=== PATIENT | male | born 1945 | race Caucasian/White ===

== ENCOUNTER 2025-04-27 14:22 | Outpatient (AMB) | payer MEDICARE, SELFPAY ==
--- NOTE | 2025-04-27 14:50 | A.OFFVIS_ITS ---
Intake Visit Reasons: debility Accompanied by: spouse and daughter Allergies No Known Allergies Allergy (Verified 04/27/25 14:50) Medication List - Last Reconciled 04/27/25 by Mili Clemons CNP acyclovir 400 mg PO BID aspirin 325 mg PO DAILY atorvastatin 20 mg PO DAILY duloxetine 60 mg PO DAILY hydrochlorothiazide 25 mg PO DAILY isosorbide mononitrate ER 60 mg PO DAILY lisinopril 20 mg PO DAILY lorazepam 1 mg PO QID PRN metoprolol tartrate 100 mg PO BID nitroglycerin 0.4 mg sublingual omeprazole 20 mg PO DAILY PRN HPI Comments Details: 80-year-old man with CAD s/p CABG, hypertension, hyperlipidemia, peripheral vascular disease, chronic viral eye infection (since causing left eye ptosis that has been unchanged, managed with acylovir), history of cervical discectomy and fusion, and chronic back pain s/p lumbar laminectomy in 2019 who presents with difficulty and inability to walk due to leg weakness and pain. Over the past three months, he has experienced a progressive weakening of his legs, particularly from the knees downwards, rendering him unable to bear weight. Symptoms initially improved during in-patient rehabilitation stay in 02/2025, but his condition worsened after returning home. He is using a wheelchair and is able to transfer by sliding himself. He requires 2 assistance to stand with difficulty. He gets severe pain in lower legs when standing, making standing and walking very difficult. He occasionally has some coldness in the legs, and numbness and tingling, particularly at night. [facility], LATER [facility] Medical History (Updated 04/27/25 @ 16:38 by Mili Clemons CNP) Hypertension CAD (coronary artery disease) Surgical History (Updated 04/27/25 @ 16:38 by Mili Clemons CNP) S/P cervical discectomy S/P lumbar laminectomy S/P CABG (coronary artery bypass graft) Social History (Updated 04/27/25 @ 16:38 by Mili Clemons CNP) Alcohol intake: never Patient Tobacco Use Status: Never used Tobacco Review of Systems Const Denies chills, Denies daytime sleepiness, Reports difficulty sleeping, Reports fatigue, Denies fever(s), Denies frequent falls, Reports headache(s), Denies increased appetite, Denies poor appetite, Denies snoring, Reports weakness, Denies weight gain and Reports weight loss Eyes Denies blurry vision, Denies diplopia and Denies loss of vision ENT Denies vertigo, Denies dizziness, Denies dry mouth, Denies otalgia, Reports headache(s), Reports hearing loss, Denies epistaxis, Denies nasal congestion, Denies neck pain, Denies tinnitus, Denies sinus pain and Denies sore throat Card Denies chest pain at rest, Denies chest pain with activity, Denies syncope, Denies leg edema, Denies palpitations, Denies dyspnea and Denies dyspnea on exertion Resp Denies cough, Denies dyspnea, Denies dyspnea on exertion and Denies snoring GI Denies abdominal pain, Reports constipation, Denies heartburn, Denies diarrhea, Denies nausea and Denies vomiting Reports urinary frequency, Denies urinary incontinence and Denies urinary urgency Musc Reports abnormal gait (difficulty walking), Reports back pain, Denies myalgias, Denies arthralgias, Reports muscle cramps, Denies neck pain, Reports numbness, Denies stiffness and Reports tingling Skin/Breast Denies pruritus, Denies lesions, Denies erythema, Denies rash and Denies skin ulcer Neuro Reports abnormal gait (difficulty walking), Denies vertigo, Denies dizziness, Denies syncope, Denies frequent falls, Reports headache(s), Denies lack of coordination, Denies loss of vision, Reports memory loss, Reports numbness, Denies Other visual disturbances, Denies restless legs, Denies seizure-like activity, Reports tingling, Denies paresthesias, Reports tremor(s) and Reports weakness Psych Reports anxiety, Denies depression, Reports memory loss, Denies visual hallucinations and Denies hallucinations Endo Reports cold intolerance, Reports fatigue, Denies heat intolerance, Denies polydipsia, Denies polyuria and Denies palpitations Colby/Lymph Denies easy bleeding and Denies easy bruising Physical Exam Const Other: General Appearance:? normal, in no acute distress. Head:? normocephalic, atraumatic. Eyes:? sclera non-icteric, conjunctiva clear. Ears:? auditory canal clear, tympanic membrane intact, clear. Nose:? no lesions. Oral Cavity:? gums normal, mucosa moist, no lesions. Throat:? clear. Neck/Thyroid:? no cervical lymphadenopathy, thyroid normal, neck supple, full range of motion, no carotid bruit. Skin:? no rashes, no significant birthmarks. Heart:? S1, S2 normal, no murmurs. Lungs:? clear anteriorly and posteriorly. Chest:? no gross rib deformity, clear to auscultation. Back:? normal exam of spine. Extremities:? no edema. Peripheral Pulses:? normal. Psych:? alert, oriented, cognitive function intact, cooperative with exam. Neuro Other: Mental Status:?Normal attention, orientation, memory and affect.? Cranial Nerves:?Pupils are equal, round and reactive to light. External occular muscles are intact. Slight left ptosis. Visual newell are full. Face is symmetrical. Facial sensations are normal. Tongue is midline. Palate elevates symmetrically. Shoulder shrugging is normal. Hearing to bedside conversation is normal. Motor Examination:?DTRs trace to absent. Unable to stand fully upright. Sensory Exam:?Diminished vibration and joint position to bilateral lower extremities. Coordination:?No ataxia,?no titubation.? Gait Exam: In wheelchair, unable to stand fully even with assistance. Cerebellar Signs:?[id number] is okay. Extrapyramidal System:?No tremor, rigidity with normal facial expressions.? Pronator Drift:?Not present.? Involuntary Movements:?No tremors seen.? Speech:?Normal.? Results Reviewed Results Reviewed: CT head Fisher 02/24/2025: No acute intracranial pathology (reported) Lumbar MRI 01/2025: Severe central stenosis L3-4 and L4-5 with crowding of traversing nerve roots of the cauda equina. There is also estimated severe central stenosis with probable cord compression at T10-11. Moderate to severe central stenosis noted at L2-3. Multilevel severe neural foraminal narrowing, greatest at L4-5 bilaterally (reported) C Spine MRI 02/24/2025: Suboptimal evaluation of the cervical spine due to motion and lack of axial images. Within the confines, mildly progressed degenerative disc disease at C2-3, otherwise, stable multilevel degenerative disease of cervical spine. No abnormal signal within the cervical cord (reported) Assessment & Plan Assessment & Plan (1) Lumbar spinal stenosis: Code(s): M48.061 - Spinal stenosis, lumbar region without neurogenic claudication Category: Medical Qualifiers: Neurogenic claudication status: with neurogenic claudication Qualified Code(s): M48.062 - Spinal stenosis, lumbar region with neurogenic claudication Plan: 80-year-old man with severe multilevel lumbar spondylotic changes (based on notes of reported MRI findings) with severe neurogenic claudication to the point where he cannot even stand without significant pain. There was no pain at rest. The only treatment for this is surgical decompression and referral was placed to [facility] (He preferred [facility] as he had lumbar laminectomy with [facility] around 2019). Wi thout intervention, any improvement is highly unlikely. NCV/EMG ordered to assess nerve compression severity. They were advised to bring CD of MRI to next appointment for review. Plan Exam, findings, and plan reviewed with Dr. oDuglas. Orders: Orders NE nerve conduction velocity Today M48.061 - Spinal stenosis, lumbar region without neurogenic claudication NE electromyogram (EMG) Today M48.061 - Spinal stenosis, lumbar region without neurogenic claudication Referrals Orthopedics Referral M48.061 - Spinal stenosis, lumbar region without neurogenic claudication Coding Level of Care Code New Pt Level 5 (03597) Diagnoses Spinal stenosis of lumbar region with neurogenic claudication M48.062 Neurogenic claudication status: with neurogenic claudication
--- OUTSIDE RECORDS SUMMARY | 2025-04-27 18:07 | XMS_ITS ---
Author Name [facility] Organization Unknown Encounters Encounter Type Encounter Reason Primary Diagnosis Location Date Ambulatory [facility] 03/04/2025 Ambulatory [facility] 01/13/2025 Ambulatory [facility] 06/08/2024 Care Team Organization Name Specialty Phone Email Start Date End Da te [facility] [id number]
== END 2025-04-27 16:01 | disposition home or self-care (01) ==
LOC: HO.HSM 14:22
PROVIDERS: PCP Physical Medicine & Rehabilitation; Visit Provider Registered Nurse
DX: M48.062 Spinal stenosis, lumbar region with neurogenic claudication (principal)
CPT/HCPCS: 99204

== ENCOUNTER → 2025-04-27 14:22 | Outpatient (BNVA) | payer MEDICARE, SELFPAY | PROVIDERS: PCP Physical Medicine & Rehabilitation; Visit Provider Registered Nurse | DX: M48.062 Spinal stenosis, lumbar region with neurogenic claudication (principal) | CPT/HCPCS: 99202 ==